=== PATIENT | female | born 1955 ===

== ENCOUNTER 2016-12-23 14:04 | Observation (INO) | payer OTHER ==
--- NOTE | 2016-12-23 18:19 | CONS ---
DATE OF CONSULTATION: CHIEF COMPLAINT: Chest pain Remedios is a 61-year-old lady with history of, dyslipidemia, and family history of premature coronary artery disease who presented to [facility] with chest pain. She is transferred to [facility] for further care. I last evaluated her at the beginning of the year. She had a negative stress test in 2015. Her coronary risk factors are in the form of family history and dyslipidemia. At the time of my evaluation, she is pain free and hemodynamically stable. She had one set of troponin that is negative. Past medical history is negative for hypertension, diabetes, anemia. MEDICATIONS: None. ALLERGIES: None. FAMILY HISTORY: Negative for premature coronary artery disease. SOCIAL HISTORY: Negative for smoking, ETOH abuse, or drug abuse. Review of systems is unremarkable. On exam, comfortable at rest. Vital signs are stable. There is no jugular venous distention. Chest is clear to auscultation and percussion. Heart exam reveals first and second heart sounds. No gallop. No murmur, no rub. ABDOMEN: Soft, nontender. Exam of extremities did not reveal edema. Peripheral pulses are felt. ASSESSMENT: Chest pain, rule out coronary artery disease. PLAN: I am going to obtain serial CPKs and EKGs. If myocardial infarction is ruled out, I am going to set her up for a stress test tomorrow morning.
[2016-12-23] MEDS ORDERED: Acetaminophen-Codeine 300-30mg TAB PO PRN (19:39)
[2016-12-23] MEDS ORDERED: ACETAMINOPHEN TAB 325 MG TAB PO PRN (19:40)
[2016-12-23] MEDS ORDERED: CALCIUM CARBONATE 500 MG CHEWABLE PO PRN (20:03)
[2016-12-23] MEDS ORDERED: NALOXONE 0.4 MG/ML 1 ML VIAL IV PRN (20:03)
[2016-12-23] MEDS ORDERED: TEMAZEPAM 15 MG CAP PO PRN ×2 (20:03→20:04)
[2016-12-23] MEDS ORDERED: ALPRAZolam 0.25 MG TAB PO PRN (20:03)
[2016-12-23] MEDS ORDERED: HYDROmorphone 1 MG/ML 1 ML SYRINGE IVP PRN (20:04)
[2016-12-23] MEDS ORDERED: HYDROcodone/APAP 5-325MG 1 EACH TAB PO PRN (20:04)
[2016-12-23] MEDS ORDERED: SODIUM CHLORIDE 0.9% 1,000 ML IV SCH (20:15)
--- NOTE | 2016-12-23 20:25 | XR ---
EXAMINATION TYPE: XR chest 1V portable DATE OF EXAM: 12/23/2016 8:22 PM COMPARISON: NONE HISTORY: Chest pain TECHNIQUE: Single frontal view of the chest is obtained. FINDINGS: Heart and mediastinum are normal. Lungs are clear. Diaphragm is normal. There are chest le ads. Bony thorax is intact. IMPRESSION: Normal chest
[2016-12-23 20:43] LABS: Basophils % (A) 0 %; CH 31.5; CHCM 33.5; Eosinophils # (A) 0.1 k/uL (0-0.7); Eosinophils % (A) 1 %; HCT 39.6 % (34.0-46.0); HDW 2.31; HGB 13.4 gm/dL (11.4-16.0); Luc # (Auto) 0.11; Luc % (Auto) 2; Lymphocytes # (A) 1.1 k/uL (1.0-4.8); Lymphocytes % (A) 15 %; MCH 31.9 pg (25.0-35.0); MCHC 33.8 g/dL (31.0-37.0); MCV 94.2 fL (80.0-100.0); Mean Platelet Volume 6.6; Monocytes # (A) 0.3 k/uL (0-1.0); Monocytes % (A) 4 %; Neutrophils # (A) 5.8 k/uL (1.3-7.7); Neutrophils % (A) 78 %; RBC 4.21 m/uL (3.80-5.40); WBC 7.4 k/uL (3.8-10.6); WBC (Perox) 8.37
[2016-12-23] MEDS: PANTOPRAZOLE 40 MG TABLET PO SCH (20:45)
[2016-12-23 20:59] LABS: ALT 43 U/L (9-52); AST 24 U/L (14-36); Alkaline Phosphatase 108 U/L (38-126); Amylase 51 U/L (30-110); Anion Gap 11 mmol/L; Blood Urea Nitrogen 17 mg/dL (7-17); Calcium 9.8 mg/dL (8.4-10.2); Carbon Dioxide 26 mmol/L (22-30); Chloride 103 mmol/L (98-107); Glucose 141 mg/dL (74-99); Non-African American GFR(MDRD) >60 (>60 ml/min/1.73 sqM); Potassium 4.4 mmol/L (3.5-5.1); Sodium 140 mmol/L (137-145); Total Bilirubin 0.6 mg/dL (0.2-1.3); Total Protein 7.2 g/dL (6.3-8.2)
[2016-12-24 06:21] LABS: Basophils % (A) 0 %; CH 31.5; CHCM 33.8; Eosinophils # (A) 0.1 k/uL (0-0.7); Eosinophils % (A) 2 %; HDW 2.31; HGB 13.4 gm/dL (11.4-16.0); Luc # (Auto) 0.19; Luc % (Auto) 3; Lymphocytes # (A) 1.7 k/uL (1.0-4.8); Lymphocytes % (A) 29 %; MCH 31.3 pg (25.0-35.0); MCHC 33.5 g/dL (31.0-37.0); MCV 93.3 fL (80.0-100.0); Mean Platelet Volume 6.4; Monocytes # (A) 0.3 k/uL (0-1.0); Monocytes % (A) 5 %; Neutrophils # (A) 3.5 k/uL (1.3-7.7); Neutrophils % (A) 60 %; RBC 4.29 m/uL (3.80-5.40); WBC 5.9 k/uL (3.8-10.6); WBC (Perox) 6.28
[2016-12-24 06:35] LABS: Anion Gap 11 mmol/L; Blood Urea Nitrogen 17 mg/dL (7-17); Calcium 9.9 mg/dL (8.4-10.2); Carbon Dioxide 26 mmol/L (22-30); Chloride 104 mmol/L (98-107); Cholesterol 302 mg/dL (<200); Glucose 108 mg/dL (74-99); HDL Cholesterol 50 mg/dL (40-60); Non-African American GFR(MDRD) >60 (>60 ml/min/1.73 sqM); Potassium 4.4 mmol/L (3.5-5.1); Sodium 141 mmol/L (137-145); Triglycerides 213 mg/dL (<150)
[2016-12-24] MEDS: PANTOPRAZOLE 40 MG TABLET PO SCH (06:46)
--- NOTE | 2016-12-24 07:35 | HP ---
DATE OF ADMISSION: CHIEF COMPLAINT: Chest pain. HISTORY OF PRESENT ILLNESS: This 61-year-old woman with a past medical history of hyperlipidemia, history of hysterectomy, tonsillectomy, tubal ligation, history of claustrophobia, remote history of nicotine dependence being followed by Dr. Denisha Schrader in the outpatient setting was having chest pains for the last several days. The patient increased today, which was felt in the anterior part of the chest, which was mild to moderate intensity associated sweating or palpitation. Also, the patient went to [facility]. EKG did not show any acute abnormality. The patient was evaluated subsequently transferred to [facility] as a direct admission for further evaluation and treatment. Dr. García is following the patient closely. Of note, the patient had history of premature coronary artery disease in the family. Father at the age of 57. Brother had coronary artery in his 50s. The patient also had a stress test about one year ago, apparently which the patient passed. Dr. Gacría's evaluation in progress. There is no history of any fevers, rigors. No history of headache, loss of consciousness or seizures PAST MEDICAL HISTORY: History of hyperlipidemia, history of hysterectomy, tonsillectomy, history of claustrophobia. The patient is taken tumeric for hypercholesterolemia because the patient is unable to tolerate Lipitor. The medications are home medications: 1. Austin 3, 1000 daily. 2. Vitamin D2, 50,000 daily. 3. Calcium 600 mg daily. 4. Tumeric 500 mg daily. 5. Aspirin 324. 6. Tylenol 325 mg daily. Allergies are PENICILLIN. FAMILY HISTORY: History of degenerative joint disease. History of diet controlled diabetes in the family. SOCIAL HISTORY: Previous history of smoking. Occasional alcohol intake. REVIEW OF SYSTEMS: ENT: No diminished hearing. No diminished vision. CARDIOVASCULAR SYSTEM: As mentioned earlier. RESPIRATORY: As mentioned earlier. GI: No nausea. : No dysuria. NERVOUS SYSTEM: No numbness or weakness. ALLERGY/IMMUNOLOGY: No asthma or hayfever. MUSCULOSKELETAL: As mentioned earlier. HEMATOLOGY/ONCOLOGY: No history of anemia. ENDOCRINE: No history of diabetes mellitus or hypothyroidism. CONSTITUTIONAL: As mentioned earlier. DERMATOLOGY: Negative. RHEUMATOLOGY: Negative. PSYCHIATRY: As mentioned earlier. PHYSICAL EXAMINATION: The patient is alert and oriented x3. Pulse is 63, blood pressure 128/68, respirations 18, temperature 98.1, pulse ox 98% on room air. HEENT: Conjunctivae normal. Oral mucosa moist. NECK: No jugular venous distention. No carotid bruit. No lymph node enlargement. CARDIOVASCULAR: S1 and S2, muffled. No S3, no S4. RESPIRATORY: Breath sounds diminished at the bases. No rhonchi, no crackles. ABDOMEN: Soft, nontender. No mass palpable. No hepatosplenomegaly. LEGS: No edema, no swelling. NERVOUS SYSTEM: Higher functions as mentioned earlier. Moves all 4 limbs. No focal motor or sensory deficits. Cranial nerves are normal. Reflexes are normal otherwise. SKIN: No ulcer, rash, bleeding. LYMPHATICS: No lymphadenopathy of neck, axillae or groin. JOINTS: No abnormality in the joints. No active deforming arthropathy. Labs are from [facility]. Troponin 0.012. EKG no acute changes. ASSESSMENT: 1. Chest pain, possible unstable angina. 2. Family history of premature coronary artery disease. 3. Remote history of nicotine dependence. 4. Hyperlipidemia. 5. Hysterectomy. 6. Tonsillectomy. 7. History of claustrophobia. 8. History of hyperlipidemia. History of intolerance to statins. 9. History of shingles. 10. History of migraines. 11. FULL CODE. RECOMMENDATIONS AND DISCUSSION: This 61-year-old woman who presented with multiple complex medical issues, we will monitor the patient closely. Continue the current medications. Continue symptomatic treatment. At this time, I would recommend unstable angina protocol, rule out myocardial infarction, repeat labs. Otherwise, 2-D echocardiogram and as well as a stress echo. Follow up closely with cardiology. Prognosis guarded. Further recommendations to follow. I would also recommend the patient to follow up closely with primary physician also. CORNEL
[2016-12-24 10:12] LABS: Appearance,Urine Clear (Clear); Bilirubin,Urine Negative (Negative); Glucose,Urine (UA) Negative (Negative); Ketones,Urine Negative (Negative); Leukocyte Esterase,Urine Negative (Negative); Nitrite,Urine Negative (Negative); PH, Urine 5.5 (5.0-8.0); Protein,Urine Negative (Negative); Specific Gravity,Urine 1.014 (1.001-1.035); UA Billing (MACRO vs. MICRO) CHEM; Urobilinogen,Urine <2.0 mg/dL (<2.0)
--- NOTE | 2016-12-24 10:29 | P.PN ---
Subjective Principal diagnosis: Chest pain This is a 61-year-old female with known history of hyperlipidemia and premature coronary artery disease who presented to [facility] with symptoms of chest discomfort. Troponins 3 have been negative. She is scheduled today to undergo stress echocardiographic study. Echocardiogram with Doppler study was also performed which is yet pending. At the time of my examination this morning, patient denies having any chest discomfort. Blood pressure 140/68 heart rate in the 60s. Objective - Vital Signs Vital signs: Vital Signs Temp 98.2 F 12/24/16 07:34 Pulse 66 12/24/16 07:34 Resp 18 12/24/16 07:34 BP 140/69 12/24/16 07:34 Pulse Ox 94 L 12/24/16 04:00 Intake & Output 12/23/16 12/24/16 12/24/16 18:59 06:59 18:59 Intake Total 200 180 Output Total 450 Balance 200 -270 Weight 81.4 kg 81.1 kg Intake: IV 200 Sodium Chloride 0.9% 1, 200 000 ml @ 20 mls/hr IV . Q24H [facility] Rx#:[id number] Oral 180 Output: Urine 450 Other: Voiding Method Toilet # Voids 1 - Exam PHYSICAL EXAMINATION: HEENT: Head is atraumatic, normocephalic. Pupils equal, round. Neck is supple. There is no elevated jugular venous pressure. HEART EXAMINATION: Heart S1, S2 normal. No murmur or gallop heard. CHEST EXAMINATION: Lungs are clear to auscultation and precussion. No chest wall tenderness is noted on palpation or with deep breathing. ABDOMEN: Soft, nontender. Bowel sounds are heard. No organomegaly noted. EXTREMITIES: 2+ peripheral pulses with no evidence of peripheral edema and no calf tenderness noted. NEUROLOGIC patient is awake, alert and oriented -3. . - Labs CBC & Chem 7: 12/24/16 05:43 12/24/16 05:43 Labs: Abnormal Lab Results - Last 24 Hours (Table) 12/23/16 12/24/16 Range/Units 18:32 05:43 Glucose 141 H 108 H (74-99) mg/dL Triglycerides 213 H (<150) mg/dL Cholesterol 302 H (<200) mg/dL LDL Cholesterol, Calc 209 H (0-99) mg/dL Assessment and Plan (1) Chest pain Status: Acute (2) Family history of coronary arteriosclerosis Status: Acute (3) Hyperlipemia Status: Acute Plan: Patient will undergo stress echocardiographic study today, we will also review her echocardiogram with Doppler study. If the stress echo is negative from cardiology's perspective she may be able to be discharged home today to follow- up in the office post discharge. DNP note has been reviewed, I agree with a documented findings and plan of care. Patient was seen and examined.
--- NOTE | 2016-12-24 10:43 | ECHOF ---
Referral Reason: MEASUREMENTS -------- HEIGHT: 162.6 cm WEIGHT: 80.7 kg BP: RVIDd: 3.4 cm (< 3.3) IVSd: 1.1 cm (0.6 - 1.1) LVIDd: 3.2 cm (3.9 - 5.3) LVPWd: 1.3 cm (0.6 - 1.1) IVSs: 1.4 cm LVIDs: 2.2 cm LVPWs: 1.7 cm Ao Diam: 2.7 cm (2.0 - 3.7) AV Cusp: 2.3 cm (1.5 - 2.6) LA Diam: 3.0 cm (2.7 - 3.8) MV EXCURSION: 18.048 mm (> 18.000) MV EF SLOPE: 62 mm/s (70 - 150) EPSS: 0.4 cm MV E Rob: 0.65 m/s MV DecT: 301 ms MV A Rob: 0.72 m/s MV E/A Ratio: 0.90 RAP: 5.00 mmHg RVSP: 28.15 mmHg FINDINGS -------- Sinus rhythm. This was a technically adequate study. The left ventricular size is normal. There is borderline concentric left ventricular hypertrophy. Overall left ventricular systolic function is normal with, an EF between 55 - 60 %. The right ventricle is mildly enlarged. The left atrium is normal in size. The right atrium is normal in size. The aortic valve is trileaflet, and appears structurally normal. No aortic stenosis or regurgitation. The mitral valve is normal. Mild mitral regurgitation is present. Mild tricuspid regurgitation present. The right ventricular systolic pressure, as measured by Doppler, is 28.15mmHg. There is no pulmonic regurgitation present. The aortic root size is normal. There is a small, generalized pericardial effusion present. CONCLUSIONS -------- 1. Sinus rhythm. 2. There is no pulmonic regurgitation present. 3. The aortic root size is normal. 4. There is a small, generalized pericardial effusion present. 5. This was a technically adequate study. 6. There is borderline concentric left ventricular hypertrophy. 7. Overall left ventricular systolic function is normal with, an EF between 55 - 60 %. 8. The left atrium is normal in size. 9. The aortic valve is trileaflet, and appears structurally normal. No aortic stenosis or regurgitation. 10. Mild mitral regurgitation is present. 11. Mild tricuspid regurgitation present. 12. The right ventricular systolic pressure, as measured by Doppler, is 28.15mmHg. LIFTER DRIVER: Sasha Lucero RDCS
[2016-12-24 12:15] VITALS: BP 119/66; PULSE 71; RESP 17; TEMP 98.3
--- NOTE | 2016-12-24 12:57 | ECHOS ---
DATE OF SERVICE: 12/24/2016 AGE: 61Y SEX: F HT: 64 WT: 179 lbs. Protocol Partha: X Others: Stress Echo Stage: II Dur. of Exercise: 6 minutes *Heart Rate Blood Pressure *Rest: 77 Rest: 149/72 * *Max. Achieved: 145 Maximum BP: 177/95 85% PMHR: 135 100% PMHR: 159 *METS: 7.1 INDICATIONS: Chest pain. MEDICATIONS: Baseline rhythm is sinus mechanism, rate is 77, normal axis and intervals. Normal electrocardiogram. Baseline blood pressure 149/72 mmHg. Patient exercised on Partha protocol for 6 minutes reaching peak rate of 145 beats per minute, which is equal to 91% maximum predicted heart rate; peak blood pressure 177/95 mmHg. Test was terminated secondary to fatigue. There was no chest pain. Electrocardiograph monitoring revealed no evidence of diagnostic ischemic ST deviation. Baseline echocardiogram revealed normal wall motion. At peak exercise, there was normal wall motion augmentation with no hypokinesis or dyskinesis. CONCLUSION: 1. Average exercise tolerance with normal electrocardiograph response to exercise. 2. Normal stress echocardiogram with no evidence of stress-induced ischemia.
--- NOTE | 2016-12-25 11:28 | DS ---
DATE OF ADMISSION: 12/23/2016 DATE OF DISCHARGE: 12/24/2016 FINAL DIAGNOSES: 1. Chest pain, possibly musculoskeletal and negative stress test. 2. Family history of premature coronary artery disease. 3. Remote history nicotine dependence. 4. Hyperlipidemia. 5. Hypertriglyceridemia. 6. History of hysterectomy. 7. History of tonsillectomy. 8. History of claustrophobia. 9. History of intolerance to statins. 10. History of shingles. 11. History of migraines. 12. FULL CODE. DISCHARGE DISPOSITION: Patient will be discharged in stable condition with guarded prognosis. HISTORY OF PRESENT ILLNESS: This 61-year-old woman with a past medical history of multiple medical problems admitted with chest pain, myocardial infarction ruled out. Stress echocardiogram was negative. The patient will be discharged in a stable condition with guarded prognosis. On exam, vitals are stable. CARDIOVASCULAR: S1, S2 ABDOMEN: Soft. NERVOUS SYSTEM: No focal deficits. DISCHARGE ADVICE: 1. Diet is cardiac, low fat, low cholesterol. 2. Activity limited until follow-up. 3. Follow with Dr. Rose as mentioned earlier. 4. Follow with Dr. Donaldo García as mentioned earlier. MEDICATIONS: 1. Tylenol 325 mg daily. 2. Aspirin 325 mg p.o. daily. 3. Calcium 600 mg p.o. daily. 4. Vitamin D2 50,000 daily. 5. Greer-3 1000 daily.
== END 2016-12-24 16:18 | disposition home or self-care (01) ==
LOC: INTOOBSV 16:11 → 6SEL 16:11
PROVIDERS: ADMIT Internal Medicine; ATTEND Internal Medicine
DX: R07.89 Other chest pain (principal); Z82.49 Family history of ischemic heart disease and other diseases of the circulatory system; E78.5 Hyperlipidemia, unspecified; E78.1 Pure hyperglyceridemia; E78.00 Pure hypercholesterolemia, unspecified; I25.10 Atherosclerotic heart disease of native coronary artery without angina pectoris; Z88.0 Allergy status to penicillin; Z79.899 Other long term (current) drug therapy; Z79.82 Long term (current) use of aspirin; Z83.3 Family history of diabetes mellitus; Z87.891 Personal history of nicotine dependence
CPT/HCPCS: 93017; 93306; 93350; 80061; 80053; 80048; 82150; 83690; 84484 ×2; 85025 ×2; 81003; 71010; G0379; G0378 ×3; 93005

== ENCOUNTER 2021-02-05 02:58 | Observation (INO) | payer MEDICARE, OTHER ==
[2021-02-05] MEDS ORDERED: HEPARIN SODIUM 1,000 UN/ML (10ML VL) IV PRN (03:14)
[2021-02-05] MEDS ORDERED: NITROGLYCERIN SL TABS 0.4 MG TAB SUBLINGUAL PRN (03:15)
[2021-02-05] MEDS ORDERED: HEPARIN SOD,PORK IN 0.45% NACL 25,000 UNIT in 0.45% NACL 1 250ML.BAG IV SCH (03:15)
--- NOTE | 2021-02-05 03:39 | ED ---
Chest Pain HPI - General Chief Complaint: Chest Pain Stated Complaint: Chest Pain Time Seen by Provider: 02/05/21 03:09 Source: patient, EMS Mode of arrival: EMS Limitations: no limitations - History of Present Illness Initial Comments: This patient is 65-year-old woman who presents here as a transfer from [facility]. The patient had gone there tonight due to some chest pain and dyspnea as well as palpitations that she was having. He had started a couple hours before while she was trying to go to sleep. The patient also states that she has been having these symptoms intermittently probably going back a month now. She has had Holter monitor and also cardiology consultation and was to follow-up next week for results. She states that they are were also scheduling a stress test for her and an echocardiogram. Patient currently has no symptoms. Transfer packet coming the patient does show an ECG the character some atrial fibrillation. MD Complaint: chest pain -: hour(s) Onset: during rest Pain Location: substernal Pain Radiation: none Severity: mild Quality: heaviness Consistency: intermittent, now resolved Improves With: nothing Worsens With: nothing Anginal Symptoms: dyspnea Other Symptoms: palpitations - Related Data Home Medications Medication Instructions Recorded Confirmed Acetaminophen [Tylenol] 325 mg PO DAILY 12/23/16 12/23/16 Aspirin 324 mg PO DAILY 12/23/16 12/23/16 Calcium Carbonate [Calcium] 600 mg PO DAILY 12/23/16 12/23/16 Ergocalciferol (Vitamin D2) 50,000 unit PO DAILY 12/23/16 12/23/16 [Vitamin D2] Teague-3 Fatty Acids [Teague-3] 1,000 mg PO DAILY 12/23/16 12/23/16 Allergies Allergy/AdvReac Type Severity Reaction Status Date / Time Penicillins Allergy Rash/Hives Verified 12/23/16 17:34 Review of Systems ROS Statement: Those systems with pertinent positive or pertinent negative responses have been documented in the HPI. ROS Other: All systems not noted in ROS Statement are negative. Constitutional: Denies: fever, chills Respiratory: Reports: as per HPI, dyspnea. Denies: cough Cardiovascular: Reports: as per HPI, chest pain, palpitations. Denies: orthopnea, edema, syncope Gastrointestinal: Denies: abdominal pain, nausea, vomiting, diarrhea Genitourinary: Denies: dysuria, hematuria Musculoskeletal: Denies: back pain Skin: Denies: rash Neurological: Denies: headache, weakness, numbness Past Medical History Past Medical History: Hyperlipidemia Additional Past Medical History / Comment(s): "TAKES TUMERIC FOR CHOLESTEROL CAN'T TAKE THE STATINS", ALLERGIES/SINUS, HX FIBROID CYSTS, "MIGARINES", SHINGLES BEHING RT KNEE IN 2016 History of Any Multi-Drug Resistant Organisms: None Reported Past Surgical History: Hysterectomy, Tonsillectomy, Tubal Ligation Additional Past Surgical History / Comment(s): VEIN SX(RUPTURD VEINS), LT BREAST BX-NEG" STILL HAS MARKER IN PLACE", COLONOSCOPY Past Anesthesia/Blood Transfusion Reactions: Motion Sickness Additional Past Anesthesia/Blood Transfusion Reaction / Comment(s): CLAUSTERPHOBIA Past Psychological History: No Psychological Hx Reported Smoking Status: Never smoker Past Alcohol Use History: Rare Past Drug Use History: None Reported - Past Family History Mother Family Medical History: Osteoarthritis (OA) Additional Family Medical History / Comment(s): DJD,IBS,? DIET CONTROL DM Father Family Medical History: Coronary Artery Disease (CAD), Myocardial Infarction (ME) Additional Family Medical History / Comment(s): CABG General Exam Limitations: no limitations General appearance: alert, in no apparent distress Head exam: Present: atraumatic, normocephalic Eye exam: Present: normal appearance. Absent: scleral icterus, conjunctival injection ENT exam: Present: normal oropharynx Neck exam: Present: normal inspection Respiratory exam: Present: normal lung sounds bilaterally. Absent: respiratory distress, wheezes, rales, rhonchi, stridor Cardiovascular Exam: Present: regular rate, normal rhythm, normal heart sounds. Absent: systolic murmur, diastolic murmur, rubs, gallop GI/Abdominal exam: Present: soft. Absent: distended, tenderness, guarding, rebound, rigid, mass Extremities exam: Present: normal inspection, normal capillary refill. Absent: pedal edema, calf tenderness Back exam: Present: normal inspection. Absent: CVA tenderness (R), CVA tenderness (L) Neurological exam: Present: alert Skin exam: Present: warm, dry, intact, normal color. Absent: rash Course Vital Signs 02/05/21 03:00 Temperature 98.1 F Pulse Rate 80 Respiratory 18 Rate Blood Pressure 143/85 O2 Sat by Pulse 95 Oximetry Disposition Clinical Impression: Chest pain, Paroxysmal atrial fibrillation Disposition: ADMITTED IP TO THIS HOSP Condition: Good Referrals: Bandar Montoya MD [Primary Care Provider] - 1-2 days
[2021-02-05] MEDS ORDERED: METOPROLOL TARTRATE 5 MG/5 ML VIAL IVP STA (04:59)
[2021-02-05] MEDS ORDERED: LORazepam 2 MG/ML INJ IV STA (05:00)
[2021-02-05 08:47] VITALS: TEMP 98.2
[2021-02-05] MEDS ORDERED: METOPROLOL TARTRATE 12.5 MG TAB PO SCH (09:00)
[2021-02-05] MEDS ORDERED: CAFFEINE CITRATE 60 MG/3 ML VIAL IV PRN (10:10)
[2021-02-05] MEDS ORDERED: REGADENOSON 0.4 MG/5 ML SYRINGE IV PRN (10:10)
[2021-02-05] MEDS ORDERED: AMINOPHYLLINE 500 MG/20 ML VIAL IV PRN (10:10)
--- NOTE | 2021-02-05 12:53 | EST ---
EXERCISE STRESS AGE: 65 SEX: Female HT: 5'4" WT: 180 pounds PROTOCOL: Lexiscan Cardiolite STAGE: DURATION OF EXERCISE: HEART RATE REST: 66 BLOOD PRESSURE REST: 136/84 MAXIMUM HEART RATE ACHIEVED: 98 MAXIMUM BLOOD PRESSURE: 141/78 85% MPHR: 132 100% MPHR: 155 METS: INDICATIONS: Chest pain. CLINICAL INFORMATION: Baseline rhythm is sinus mechanism, rate 66, normal axis and intervals, normal electrocardiogram. Baseline blood pressure 136/84 mmHg. Patient received injection of Lexiscan. Electrocardiograph monitoring revealed no evidence of diagnostic ischemic ST deviation. Cardiolite was injected per protocol. CONCLUSION: 1. Nondiagnostic electrocardiograph stress testing. 2. Nuclear images will be reported separately. MMODL / IJN: [id number] /
[2021-02-05 13:19] LABS: Basophils % (A) 1 %; Eosinophils # (A) 0.2 k/uL (0-0.7); Eosinophils % (A) 3 %; HCT 37.5 % (34.0-46.0); HGB 12.4 gm/dL (11.4-16.0); Lymphocytes # (A) 1.6 k/uL (1.0-4.8); Lymphocytes % (A) 27 %; MCH 31.1 pg (25.0-35.0); MCHC 32.9 g/dL (31.0-37.0); MCV 94.5 fL (80.0-100.0); Mean Platelet Volume 7.3; Monocytes # (A) 0.3 k/uL (0-1.0); Monocytes % (A) 6 %; Neutrophils # (A) 3.5 k/uL (1.3-7.7); Neutrophils % (A) 61 %; Platelet Count 299 k/uL (150-450); RBC 3.97 m/uL (3.80-5.40); RDW 12.5 % (11.5-15.5); WBC 5.7 k/uL (3.8-10.6)
[2021-02-05 13:20] VITALS: BP 135/88; PULSE 72; RESP 16
--- NOTE | 2021-02-05 13:42 | NM ---
EXAMINATION TYPE: NM stress lexiscan cardiolite DATE OF EXAM: 02/05/2021 COMPARISON: NONE HISTORY: Chest pain TECHNIQUE: After the intravenous administration of 9.8 mCi Tc 99m Sestamibi - Cardiolite resting SPE CT images acquired 45 minutes post injection. The patient received 0.4mg Lexiscan, 24.9 mCi Tc 99m Sestamibi - Stress images obtained [address] injection FINDINGS: Review of stress and rest SPECT images demonstrates mild decreased activity of the mid and basilar in ferior wall on both stress and rest images, however with normal wall motion, likely representing atte nuation artifact. No distinct reversible perfusion abnormality. Gated analysis shows normal wall mot ion with an estimated left ventricular ejection fraction of 65 %. Normal TID of 1.07 IMPRESSION: 1. No scintigraphic evidence for reversible ischemia. 2. Ejection fraction 65%.
--- NOTE | 2021-02-05 15:59 | CONS ---
CONSULTATION Mrs. Daly is a 65-year-old female who was recently seen by Dr. García. She was transferred from [facility] with symptoms of palpitations. She had symptoms of palpitations on and off and was seen by Dr. García for evaluation, but last night she had an episode that persisted, went to the emergency room. She was in sinus mechanism with PACs. Patient denies any associated chest discomfort or significant dyspnea. She denies any dizziness or syncope. She has no PND, orthopnea or peripheral edema. Her activity is limited because of her knee, but she takes care of herself and she has no exertional chest discomfort or significant dyspnea. She underwent a Holter monitor as an outpatient by her primary care physician, but the results are not available. She has no history of cardiac disease in the past. Her coronary risk factors are remarkable for hypertension, hyperlipidemia. She is a nonsmoker, nondiabetic. Her medications include vitamins, omega-3 fish oil, lisinopril 5 mg daily. She is INTOLERANT TO STATIN. REVIEW OF SYSTEMS: RESPIRATORY SYSTEM: She has no recent wheezing, no cough, no history of obstructive lung disease. GI SYSTEM: No recent GI bleeding. No peptic ulcer disease. SYSTEM: No dysuria or hematuria. NERVOUS SYSTEM: No stroke or seizure. PHYSICAL EXAMINATION: She is a 65-year-old female, alert, oriented, in no apparent distress. Blood pressure 136/70 with a heart rate in the 70s. HEAD: Normocephalic. Eyes: Sclerae nonicteric. NECK: Good carotid upstroke. No bruit. No jugular venous distention. LUNGS: Clear to auscultation. HEART: Regular rate and rhythm. S1, S2. No S3, no S4. No murmur or rub. ABDOMEN: Soft, nontender. Positive bowel sounds. No organomegaly. EXTREMITIES: No edema. Intact distal pulses. LAB DATA: Lab data revealed a troponin of less than 0.12 for two samples. Her BUN and creatinine were normal at [facility]. Her EKG revealed sinus mechanism with PACs. There is no evidence of ST-segment elevation or atrial fibrillation. IMPRESSION: 1. Palpitations; appears to be single PACs so far. 2. History of hypertension. 3. Hyperlipidemia, intolerant to statin. RECOMMENDATIONS: I will stop her heparin. Proceed with an echocardiogram with Doppler as well as myocardial perfusion imaging to further assess her status and guide her treatment. Depending on the results of testing, further recommendation will be made. Thank you for this consult. Will follow with you. MMODL / IJN: [id number] /
--- NOTE | 2021-02-05 16:00 | P.HPIM ---
History of Present Illness H&P Date: 02/05/21 Chief Complaint: Chest pain and heart racing up fast Patient is a 65-year-old female with a known history of hyperlipidemia, hypertension, GERD, history of diabetes type 2 [id number] prior to weight loss, psoriasis and vitamin D deficiency initially presented to [facility] with complaints of chest pain and palpitations. Patient says that she developed palpitations couple of hours before she was trying to go to sleep. Palpitations along with shortness of breath and chest tightness. No radiation of the pain. Patient says that she has been having palpitations for the past 3-4 weeks on and off and was seen by cardiology in the clinic. Patient had lab workup including TSH level was done in the clinic. Patient was also scheduled for stress test and echocardiogram. Patient was eventually transferred to [facility] for cardiac e valuation. Initial EKG at [facility] showed atrial fibrillation with rapid ventricular rate. Currently patient denied any chest pain. Corrected to sinus rhythm spontaneously. Patient was started on heparin drip. Troponin 2 negative COVID-19 PCR not detected. Review of Systems Constitutional: Patient denies any fever or chills . No generalized weakness or weight loss. Abdomen: Patient denied nausea vomiting and diarrhea and abdominal pain. Cardiovascular: Patient denies any chest pain or short of breath no palpitations. Respiratory: patient denied any cough is from production. No shortness of breath Neurologic: Patient denied any numbness or tingling headache. Musculoskeletal: Patient denies any complaints of joint swelling or deformity. Skin: Negative Psychiatric: Negative Endocrine: No heat or cold intolerance. No recent weight gain. Genitourinary: No dysuria or hematuria. All other 14 point ROS negative except the above Past Medical History Past Medical History: Chest Pain / Angina, GERD/Reflux, Hyperlipidemia, Pneumonia, Skin Disorder Additional Past Medical History / Comment(s): Pt does not tolerate statins, past NIDDM/HTN but not since weight loss, sinus allergies, benign fibroid cysts, migraines, 2016 shingelles, psoriasis, UTI, vitamin D deficiency History of Any Multi-Drug Resistant Organisms: None Reported Past Surgical History: Breast Surgery, Hysterectomy, Orthopedic Surgery, Tonsillectomy, Tubal Ligation Additional Past Surgical History / Comment(s): L breast bx-benign and pt has marker, bilateral legs surgery for ruptured veins, colonoscopies, R knee injury with arthroscopic repair. Past Anesthesia/Blood Transfusion Reactions: Motion Sickness Additional Past Anesthesia/Blood Transfusion Reaction / Comment(s): CLAUSTERPHOBIA Smoking Status: Never smoker - Past Family History Mother Family Medical History: Diabetes Mellitus, Osteoarthritis (OA) Additional Family Medical History / Comment(s): DJD,IBS, DIET CONTROL DM. Mother is 87yrs old Father Family Medical History: Coronary Artery Disease (CAD), Myocardial Infarction (IN) Additional Family Medical History / Comment(s): CABG, MIs-pt cannot recall age of first IN but had his 4th IN at the age of 56yrs. Father of CHF at the age of 57 yrs. Medications and Allergies Home Medications Medication Instructions Recorded Confirmed Type Calcium Carbonate [Calcium] 600 mg PO DAILY 12/23/16 02/05/21 History [place]-3 Fatty Acids [[place]-3] 1,000 mg PO DAILY 12/23/16 02/05/21 History Apple Cider Vinegar Complex 1 cap PO DAILY 02/05/21 02/05/21 History Ascorbic Acid [Vitamin C] 1,000 mg PO DAILY 02/05/21 02/05/21 History Aspirin 81 mg PO DAILY #30 chew 02/05/21 Rx Cholecalciferol [Vitamin D3 (25 25 mcg PO DAILY 02/05/21 02/05/21 History Mcg = 1000 Iu)] Metoprolol Tartrate [Lopressor] 25 mg PO BID #60 tab 02/05/21 Rx Multivitamins, Thera [Multivitamin 1 tab PO DAILY 02/05/21 02/05/21 History (formulary)] Nitroglycerin Sl Tabs [Nitrostat] 0.4 mg SUBLINGUAL Q5M PRN #30 tab 02/05/21 Rx Olipura 1 cap PO DAILY 02/05/21 02/05/21 History Zinc 50 mg PO DAILY 02/05/21 02/05/21 History Allergies Allergy/AdvReac Type Severity Reaction Status Date / Time Penicillins Allergy Rash/Hives Verified 02/05/21 06:28 shellfish derived [Shellfish] Allergy Rash/Hives Verified 02/05/21 06:28 Physical Exam Vitals: Vital Signs Temp Pulse Resp BP Pulse Ox 02/05/21 08:47 98.2 F 75 18 136/79 98 02/05/21 04:58 88 18 159/97 95 02/05/21 03:00 98.1 F 80 18 143/85 95 Intake and Output 02/04/21 02/05/21 02/05/21 22:59 06:59 14:59 Intake Total 91.36 Balance 91.36 Intake: Intake, IV Titration 91.36 Amount Heparin Sod,Pork in 0.45% 91.36 NaCl 25,000 unit In 0.45 % NaCl 1 250ml.bag @ 18 UNITS/KG/HR 14.696 mls/hr IV .Q17H1M [facility] Rx#: [id number] Other: Weight 81.647 kg 81.647 kg PHYSICAL EXAMINATION: Patient is lying in the bed comfortably, no acute distress, awake alert and oriented.. HEENT: Normocephalic. Neck is supple. Pupils reactive. Nostrils clear. Oral cavity is moist. Ears reveal no drainage. Neck reveals no JVD, carotid bruits, or thyromegaly. CHEST EXAMINATION: Trachea is central. Symmetrical expansion. Lung peña clear to auscultation and percussion. CARDIAC: Normal S1, S2 with no gallops. No murmurs ABDOMEN: Soft. Bowel sounds normal. No organomegaly. No abdominal bruits. Extremities: reveal no edema. No clubbing or cyanosis Neurologically awake, alert, oriented x3 with well-coordinated movements. No focal deficits noted Skin: No rash or skin lesions. Psychiatric: Coperative. Nonsuicidal Musculoskeletal: No joint swelling or deformity. Normal range of motion. Results CBC & Chem 7: 02/05/21 08:15 Labs: Abnormal Lab Results - Last 24 Hours (Table) 02/05/21 Range/Units 08:15 APTT 129.8 H* (22.0-30.0) sec Thrombosis Risk Factor Assmnt - DVT/VTE Prophylaxis DVT/VTE Prophylaxis: Pharmacologic Prophylaxis ordered - Choose All That Apply Any of the Below Risk Factors Present?: Yes Each Factor Represents 1 point: Obesity (BMI >25) Other Risk Factors: Yes Each Risk Factor Represents 2 Points: Age 61-74 years Other congenital or acquired thrombophilia - If yes, enter type in comment: No Thrombosis Risk Factor Assessment Total Risk Factor Score: 3 Thrombosis Risk Factor Assessment Level: Moderate Risk Assessment and Plan Assessment: Paroxysmal atrial fibrillation with RVR. Rate controlled now. Converted to sinus rhythm now. Chest pain and palpitations secondary to above. Rule out ACS Hyperlipidemia History of hypertension and diabetes type 2. Resolved after weight loss. GERD Vitamin D deficiency Psoriasis DVT prophylaxis patient is on heparin drip plan: Patient will be continued on telemetry monitoring. Started on aspirin and metoprolol 25 mg twice a day as per cardiology. Continue with home medications and follow up closely. Lexiscan stress test was ordered. Cardiology is on board. Further recommendations based on the clinical course. Time with Patient: Greater than 30
[2021-02-05] MEDS ORDERED: METOPROLOL TARTRATE 25 MG TAB PO SCH (21:00)
[2021-02-06 06:52] LABS: African American GFR (CKD) 105.4 (60.0-200.0); Anion Gap 12.9 mmol/L (4.00-12.00); BUN/Creat Ratio 24.29 Ratio (12.00-20.00); Calcium 8.7 mg/dL (8.7-10.3); Carbon Dioxide 24.1 mmol/L (21.6-31.8); Non-African American GFR(CKD) 90.9 (60.0-200.0); Potassium 4.3 mmol/L (3.5-5.5)
--- NOTE | 2021-02-06 07:39 | ECHOF ---
Referral Reason:palpitations MEASUREMENTS -------- HEIGHT: 162.6 cm WEIGHT: 81.7 kg BP: RVIDd: 2.9 cm (< 3.3) IVSd: 1.0 cm (0.6 - 1.1) LVIDd: 4.4 cm (3.9 - 5.3) LVPWd: 1.0 cm (0.6 - 1.1) IVSs: 1.2 cm LVIDs: 3.0 cm LVPWs: 1.6 cm LA Diam: 3.0 cm (2.7 - 3.8) Ao Diam: 1.9 cm (2.0 - 3.7) MV EXCURSION: 13.883 mm (> 18.000) MV EF SLOPE: 69 mm/s (70 - 150) EPSS: 0.4 cm MV E Rob: 0.69 m/s MV DecT: 245 ms MV A Rob: 0.60 m/s MV E/A Ratio: 1.14 RAP: 5.00 mmHg RVSP: 18.36 mmHg FINDINGS -------- Sinus rhythm. This was a technically good study. LV size, wall thickness and systolic function are normal, with an EF greater than 55%. The left lissette tricular size is normal. The right ventricle is normal in size. The left atrial size is normal. The right atrial size is normal. The aortic valve is trileaflet, and appears structurally normal. No aortic stenosis or regurgitation. Mild mitral regurgitation is present. Mild tricuspid regurgitation present. Right ventricular systolic pressure is normal at < 35 mmHg. There is no pulmonic regurgitation present. The aortic root size is normal. Echo free space represents a pericardial fat pad. CONCLUSIONS -------- 1. LV size, wall thickness and systolic function are normal, with an EF greater than 55%. 2. The left ventricular size is normal. 3. The right ventricle is normal in size. 4. The left atrial size is normal. 5. The right atrial size is normal. 6. Mild mitral regurgitation is present. 7. Mild tricuspid regurgitation present. 8. The aortic root size is normal. 9. Echo free space represents a pericardial fat pad. FISH HEADER: Jaky Rico RDCS
[2021-02-06] MEDS ORDERED: ASPIRIN 325 MG TAB PO SCH (09:00)
[2021-02-06] MEDS ORDERED: ASPIRIN 81 MG PO SCH (09:00)
[2021-02-06] MEDS ORDERED: ASCORBIC ACID 500 MG TAB PO SCH (09:00)
[2021-02-06] MEDS ORDERED: ZINC SULFATE 220 MG CAP PO SCH (09:00)
[2021-02-06] MEDS ORDERED: MULTIVITAMINS, THERA 1 EACH TAB PO SCH (09:00)
[2021-02-06] MEDS ORDERED: CHOLECALCIFEROL 25 MCG (1000 IU) TABLET PO SCH (09:00)
[2021-02-06] MEDS ORDERED: CALCIUM CARBONATE 500 MG CHEWABLE PO SCH (09:00)
== END 2021-02-05 17:00 | disposition home or self-care (01) ==
LOC: EC 02:58 → 6NMEDSUR 03:17
PROVIDERS: ADMIT Internal Medicine; ATTEND Internal Medicine
DX: I48.0 Paroxysmal atrial fibrillation (principal); E78.5 Hyperlipidemia, unspecified; I49.1 Atrial premature depolarization; K21.9 Gastro-esophageal reflux disease without esophagitis; I10 Essential (primary) hypertension; G43.909 Migraine, unspecified, not intractable, without status migrainosus; L40.9 Psoriasis, unspecified; E55.9 Vitamin D deficiency, unspecified; F40.240 Claustrophobia; E66.9 Obesity, unspecified; Z68.30 Body mass index [BMI] 30.0-30.9, adult; Z78.9 Other specified health status; Z20.822 Contact with and (suspected) exposure to COVID-19; Z79.82 Long term (current) use of aspirin; Z79.899 Other long term (current) drug therapy; Z91.013 Allergy to seafood; Z88.0 Allergy status to penicillin; Z86.39 Personal history of other endocrine, nutritional and metabolic disease; Z86.19 Personal history of other infectious and parasitic diseases; Z87.01 Personal history of pneumonia (recurrent); Z87.42 Personal history of other diseases of the female genital tract; Z90.710 Acquired absence of both cervix and uterus; Z98.51 Tubal ligation status; Z98.890 Other specified postprocedural states; Z87.440 Personal history of urinary (tract) infections; Z83.3 Family history of diabetes mellitus; Z82.61 Family history of arthritis; Z82.49 Family history of ischemic heart disease and other diseases of the circulatory system; Z83.79 Family history of other diseases of the digestive system
CPT/HCPCS: 96365; 96366; 96375; 99285; 93017; 93306; 80048; 84443; 84484; 85025; 85730; 87636; 78452; G0378; A9500; J2060; J2785; J1644